=== PATIENT | female | born 1995 | race Caucasian/White ===

== ENCOUNTER 2020-07-17 16:03 | Outpatient (CLI) | payer OTHER | END 2020-07-17 16:48 | disposition home or self-care (01) | LOC: EROP 16:03 → ER1 16:03 → EROP 16:48 | DX: Z53.9 Procedure and treatment not carried out, unspecified reason (principal) ==

== ENCOUNTER 2020-08-21 01:31 | Observation (INO) | payer BC, OTHER ==
[~2020-08-21] VITALS: Ht 167.6 cm; Wt 70.3 kg
[2020-08-21 02:22] LABS: HEMOGLOBIN 15.4 gm/dl (12.3-15.3); RED BLOOD COUNT 5.12 M/UL (4.00-5.10); WHITE BLOOD COUNT 12.4 K/UL (4.5-11.0)
[2020-08-21 02:35] LABS: BUN/CREATININE RATIO 20 (0-10)
[2020-08-21] MEDS ORDERED: ALYACEN 1-35-21 EACH PO (09:52)
[2020-08-22] MEDS ORDERED: PREDNISONE 10 M10 MG PO (11:16)
[2020-08-22] MEDS ORDERED: ZOFRAN ODT 4 MG4 MG GT (11:16)
--- NOTE | 2020-08-22 11:39 | NUR ---
INSTRUCTED PATIENT TO MAKE SELF APPOINTMENT FOR GI. INSTRUCTED ZOFRAN AND PREDNISONE BOTH AT PHARMACY, OF CHOICE. VERBALIZED UNDERSTANDING BILLIE KLEIN R.N.
[2020-08-23 14:15] LABS: ATYPICAL PANCA <1:20 titer (Neg:<1:20); CYTOPLASMIC (C-ANCA) <1:20 titer (Neg:<1:20); PERINUCLEAR (P-ANCA) <1:20 titer (Neg:<1:20)
== END 2020-08-22 12:05 | disposition home or self-care (01) ==
LOC: ER1 01:31 → MED SURG 4 03:57 → CDU 03:57 → MED SURG 4 13:56
PROVIDERS: Physician Assistant; Student in an Organized Health Care Education/Training Program; ADMIT Surgery
DX: R10.31 Right lower quadrant pain (principal); R11.2 Nausea with vomiting, unspecified; R19.7 Diarrhea, unspecified; Z20.822 Contact with and (suspected) exposure to COVID-19; Z79.899 Other long term (current) drug therapy
CPT/HCPCS: 80053; 81001; 82607; 83540; 83550; 83690; 84703; 85025; 85652; 86140; 86256; 87086; 96374; 96375; 96376; 99284; G0378; J1885; J2270; J2405; J7030; J7040; J7120; Q9967; U0002

== ENCOUNTER → 2020-09-01 | Outpatient (CLI) | payer BC, OTHER ==
[~2020-09-01] MED LIST: ALYACEN 1-35-21 EACH PO; PREDNISONE 10 M10 MG PO; ZOFRAN ODT 4 MG4 MG GT
== END ==
LOC: EROP 14:03
DX: Z01.812 Encounter for preprocedural laboratory examination (principal); Z20.822 Contact with and (suspected) exposure to COVID-19
CPT/HCPCS: U0002

== ENCOUNTER → 2021-01-31 | Outpatient (CLI) | payer BC, OTHER | LOC: LAB 16:49 | DX: R35.0 Frequency of micturition (principal) | CPT/HCPCS: 81001 ==

== ENCOUNTER → 2021-03-03 | Outpatient (CLI) | payer OTHER | LOC: EROP 20:08 | DX: Z20.822 Contact with and (suspected) exposure to COVID-19 (principal) | CPT/HCPCS: U0002 ==

== ENCOUNTER → 2021-05-21 | Outpatient (CLI) | payer BC | LOC: EROP 13:23 | DX: N91.2 Amenorrhea, unspecified (principal) | CPT/HCPCS: 84702 ==

== ENCOUNTER → 2021-07-23 | Outpatient (CLI) | payer BC | LOC: EROP 10:52 | DX: N91.2 Amenorrhea, unspecified (principal) | CPT/HCPCS: 84702 ==

== ENCOUNTER → 2021-07-29 | Outpatient (CLI) | payer BC | LOC: LAB 11:50 | DX: N91.2 Amenorrhea, unspecified (principal) | CPT/HCPCS: 36415; 84702 ==

== ENCOUNTER → 2021-09-19 | Outpatient (CLI) | payer BC | LOC: EROP 09:58 | DX: Z20.822 Contact with and (suspected) exposure to COVID-19 (principal) | CPT/HCPCS: U0002 ==

== ENCOUNTER → 2021-10-02 | Outpatient (CLI) | payer BC | LOC: LAB 16:29 | PROVIDERS: Emergency Medicine | DX: R53.82 Chronic fatigue, unspecified (principal) | CPT/HCPCS: 85014; 85018 ==